=== PATIENT | female | born 1990 | race Caucasian/White ===

== ENCOUNTER 2018-05-05 08:34 | Emergency (ER) | payer OTHER ==
[~2018-05-05] VITALS: Ht 170.2 cm; Wt 84.8 kg
[2018-05-05 08:35] VITALS: BP 121/74
[2018-05-05] MEDS ORDERED: DICL100G16 PO (08:45)
[2018-05-05] MEDS ORDERED: CYCL5TAB PO (08:45)
--- NOTE | 2018-05-05 08:48 | NUR ---
SEEN AND EXAMINED BY DR. LOBO.
[2018-05-05] MEDS ORDERED: KETOROLAC TROMETHAMINE INJ 30 MG/ML VIAL ONE ×2 (08:59→09:19)
[2018-05-05] MEDS ORDERED: KETOROLAC TROMETHAMINE INJ 30 MG/ML VIAL IM ONE (09:00)
--- NOTE | 2018-05-05 10:30 | NUR ---
Patient discharged to home in stable condition. Written and verbal after care instructions given. Patient verbalizes understanding of instruction.
== END 2018-05-05 10:32 | disposition home or self-care (01) ==
LOC: ER 08:34
DX: M54.41 Lumbago with sciatica, right side (principal); G89.29 Other chronic pain; F17.200 Nicotine dependence, unspecified, uncomplicated; F12.10 Cannabis abuse, uncomplicated
CPT/HCPCS: 84703; 96372; 99283; A4606; J1885

== ENCOUNTER 2019-06-18 11:14 | Emergency (ER) | payer BC, OTHER ==
[~2019-06-18] VITALS: Ht 175.3 cm; Wt 81.6 kg
[~2019-06-18 11:14] MED LIST: CYCL5TAB PO; DICL100G16 PO
--- NOTE | 2019-06-18 11:24 | NUR ---
flu like symptoms and sob x yesterday, no relief from inhaler. pt awake, alert, nad noted, vss, pending md rowe.
--- NOTE | 2019-06-18 11:30 | NUR ---
BLOOD DRAWN AND SENT TO LAB
--- NOTE | 2019-06-18 11:57 | NUR ---
COVID SWAB SENT TO LAB
[2019-06-18 11:59] LABS: BASOPHILS # (AUTO) 0.1 /CMM (0.0-0.2); BASOPHILS % (AUTO) 1.6 % (0.0-2.0); EOSINOPHILS % (AUTO) 4.5 % (0.0-6.0); HEMATOCRIT 41 % (33-45); HEMOGLOBIN 13.9 g/dL (11.5-14.8); LYMPHOCYTES # (AUTO) 2.6 /CMM (0.8-4.8); LYMPHOCYTES % (AUTO) 45.6 % (20.0-44.0); MEAN CORPUSCULAR HGB CONC 34 g/dl (31.0-36.0); MEAN CORPUSCULAR VOLUME 98 fL (82-100); MONOCYTES # (AUTO) 0.4 /CMM (0.1-1.30); MONOCYTES % (AUTO) 6.8 % (2.0-12.0); NEUTROPHILS # (AUTO) 2.3 /CMM (1.8-8.9); NEUTROPHILS % (AUTO) 41.5 % (43.0-81.0); PLATELET COUNT (AUTO) 241 /CMM (150-450); WHITE BLOOD COUNT (AUTO) 5.6 K/uL (4.3-11.0)
[2019-06-18 12:09] LABS: POTASSIUM 4.1 mmol/L (3.5-5.1)
--- NOTE | 2019-06-18 13:24 | NUR ---
Patient discharged to home in stable condition. Written and verbal after care instructions given. Patient verbalizes understanding of instruction.
[2019-06-18 13:25] VITALS: BP 113/75
== END 2019-06-18 13:25 | disposition home or self-care (01) ==
LOC: ER 11:23
DX: J06.9 Acute upper respiratory infection, unspecified (principal)
CPT/HCPCS: 36415; 71045-TC; 80048-TC; 85025-TC; U0002